=== PATIENT | male | born 1990 | race Two or more races ===

== ENCOUNTER 2017-05-04 17:17 | Emergency (ER) | payer SELFPAY ==
[~2017-05-04] VITALS: Ht 167.6 cm; Wt 67.0 kg
[2017-05-04 17:21] VITALS: BP 132/83
== END 2017-05-04 18:09 | disposition home or self-care (01) ==
LOC: ED 17:46
DX: K13.0 Diseases of lips (principal)
CPT/HCPCS: 99281